=== PATIENT | male | born 1980 | race Caucasian/White ===

== ENCOUNTER → 2017-12-26 | Outpatient (CLI) | payer OTHER | LOC: COL.RAD 11:49 | DX: R42 Dizziness and giddiness (principal); Z86.018 Personal history of other benign neoplasm; Z98.890 Other specified postprocedural states | CPT/HCPCS: A9585 ==

== ENCOUNTER → 2020-09-02 | Outpatient (REF) ==
[~2020-09-02] MED LIST: DECADRON 4MG TAB4 MG PO; PROAIR HFA0.09 MG/AC IH; TUSS PO; ZITHROMAX Z PA250 MG PO
== END ==
LOC: ZLAB.WSOH 09:09 → COL.LAB 09:09
DX: Z20.822 Contact with and (suspected) exposure to COVID-19 (principal)

== ENCOUNTER 2021-01-11 09:24 | Emergency (ER) | payer OTHER ==
[~2021-01-11] VITALS: Ht 182.9 cm; Wt 79.5 kg
[2021-01-11 10:04] VITALS: TEMP 98.4
[2021-01-11 10:32] LABS: BASO % 0.5 % (0.0-2.0); EOS # 0.1 (0.0-0.7); EOS % 1.5 % (0-4.0); GRAN # 6.7 (1.4-6.5); GRAN % 83.3 % (42.2-75.2); HEMATOCRIT 42.5 % (42.0-52.0); HEMOGLOBIN 14.6 g/dl (13.5-18.0); LYMPH # 0.7 (1.2-3.4); LYMPH % 8.1 % (20.0-51.0); MEAN CELL VOLUME 88 fl (80.0-100.0); MEAN CORPUSCULAR HEMOGLOBIN 30 pg (27.0-31.0); MEAN CORPUSCULAR HGB CONC 34 g/dl (33.0-37.0); MEAN PLATELET VOLUME 9.7 fl (7.4-10.4); MONO # 0.5 (0.1-0.6); MONO % 6.6 % (1.7-9.3); PLATELET COUNT 250 K/mm3 (130-400); RED BLOOD COUNT 4.83 M/mm3 (4.20-5.60); REDCELL DISTRIBUTION WIDTH-CV 13.6 % (11.5-14.5)
[2021-01-11 10:41] LABS: ALBUMIN 4.4 gm/dL (3.5-5.0); BILIRUBIN,TOTAL 0.7 mg/dL (0.0-1.0); CALCIUM 9.4 mg/dL (8.4-10.2); CREATININE, serum 0.99 (0.66-1.25); POTASSIUM 4.2 mmol/L (3.4-5.0); TOTAL PROTEIN 7.4 gm/dL (6.4-8.2)
[2021-01-11] MEDS ORDERED: ZITHROMAX Z PA250 MG PO (10:53)
[2021-01-11] MEDS ORDERED: PROAIR HFA0.09 MG/AC IH (10:53)
[2021-01-11] MEDS ORDERED: TUSS PO (10:53)
[2021-01-11] MEDS ORDERED: DECADRON 4MG TAB4 MG PO (10:53)
[2021-01-11 11:08] VITALS: BP 111/75; PULSE 92
== END 2021-01-11 11:09 | disposition home or self-care (01) ==
LOC: COL.ER 09:24
PROVIDERS: Nurse Practitioner Primary Care
DX: J20.9 Acute bronchitis, unspecified (principal); Z20.822 Contact with and (suspected) exposure to COVID-19
CPT/HCPCS: J1100